=== PATIENT | male | born 1980 | race Two or more races ===

== ENCOUNTER 2018-03-10 05:22 | Day surgery (SDC) | payer BC ==
[~2018-03-10 05:22] MED LIST: Buffered Lidocaine 0.9% SYRIN* 5 ML/SYR SYRINGE INTRADERM ONE
[2018-03-10] MEDS ORDERED: Famotidine IV* 10 MG/ML 2 ML (20 mg) ONE (05:58)
[2018-03-10] MEDS ORDERED: Buffered Lidocaine 0.9% SYRIN* 5 ML/SYR SYRINGE ONE (05:58)
[2018-03-10] MEDS ORDERED: Famotidine IV* 10 MG/ML 2 ML (20 mg) IV ONE (06:00)
[2018-03-10] MEDS ORDERED: Methylene Blue 0.5 %* 50 MG/10 ML AMP IV ONE (06:36)
[2018-03-10] MEDS ORDERED: Lidocaine 2% EPI 1:200000 MPF*10-20 ML VIAL ONE (06:37)
[2018-03-10] MEDS ORDERED: Propofol* 10 MG/ML 20 ML BTL IV PUSH ONE (06:45)
[2018-03-10] MEDS ORDERED: fentaNYL* 50 MCG/ML 2 ML VIAL (100 MCG VIAL) ONE ×2 (06:45→08:22)
[2018-03-10] MEDS ORDERED: Dexamethasone IV* 4 MG/ML 1 ML (4 MG) ONE (06:45)
[2018-03-10] MEDS ORDERED: Ondansetron INJ* 2 MG/ML VIAL ONE (06:45)
[2018-03-10] MEDS ORDERED: Lidocaine 2% PF * 5 ML VIAL ONE (06:45)
[2018-03-10] MEDS ORDERED: Midazolam* 1 MG/ML 5 ML VIAL (5 MG) ONE (06:45)
[2018-03-10] MEDS ORDERED: Naloxone* 0.4 MG/ML 1 ML VIAL IV PRN (06:57)
[2018-03-10] MEDS ORDERED: oxyCODONE/Acetamin 5/325 MG* TAB PO PRN (06:57)
[2018-03-10] MEDS ORDERED: Ondansetron INJ* 2 MG/ML VIAL IV PRN (06:57)
[2018-03-10] MEDS ORDERED: Cisatracurium* 2 MG/ML MDV 5 ML ONE (07:02)
[2018-03-10] MEDS: fentaNYL* 50 MCG/ML 2 ML VIAL (100 MCG VIAL) IV PRN ×4 (08:22→08:50)
[2018-03-10] MEDS ORDERED: Acetaminophen TAB* 325 MG ONE (09:02)
[2018-03-10 09:32] VITALS: BP 135/80
--- NOTE | 2018-03-10 21:38 | OP ---
DATE OF OPERATION: 03/10/18 - [facility] DATE OF : 80 SURGEON: Maulik Richard M.D. WATER PLUMBER: Dr. Gomez. ANESTHESIOLOGIST: Dr. Bernard. 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 POST-OP DIAGNOSIS: Right neck mass, possible lymph node. OPERATIVE PROCEDURE: Excision of right neck branchial cyst. BRIEF HISTORY: This 37-year-old gentleman presented with right neck mass, homogeneous cystic structure on CT scan. 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 He elected for surgical excision. DESCRIPTION OF PROCEDURE: The patient was taken to the operating room. General anesthetic was given. The patient was intubated. His right neck was then prepped and draped in the usual fashion. A curvilinear incision was made just below the angle of the mandible. Subplatysmal flaps were elevated and the sternocleidomastoid muscle was identified and retracted out laterally. Blunt and sharp dissection was carried out towards the mass. The accessory node was identified and preserved. Careful blunt and sharp dissection around the mass was carried out. It was obvious this is more solid than cystic. This was then therefore sent for flow cytometry and permanent sections to examine as a possible lymph node. Wound was copiously irrigated. TLS drain was inserted. The wound was then closed in two layers. Small dressing was applied. The patient awakened and sent to the recovery room in stable condition. Instrument and sponge counts were correct. Blood loss minimal. [id number]/[facility] #: [id number] MTDD
== END 2018-03-10 09:34 | disposition home or self-care (01) ==
LOC: OR 05:22
PROVIDERS: ATTEND Otolaryngology
DX: D36.11 Benign neoplasm of peripheral nerves and autonomic nervous system of face, head, and neck (principal)
CPT/HCPCS: 88305; 88333; 88341; 88342; 88360; A9270-GY; C1776; J1100; J2250; J2405; J2704; J3010